=== PATIENT | male | born 1980 | race Two or more races ===

== ENCOUNTER 2020-01-19 15:50 | Emergency (ER) | payer SELFPAY ==
[~2020-01-19] VITALS: Ht 165.1 cm; Wt 110.4 kg
[2020-01-19 17:52] VITALS: BP 171/106
[2020-01-19] MEDS ORDERED: LORazepam 1MG TABLET ONE (17:54)
[2020-01-19] MEDS ORDERED: LORazepam 1MG TABLET PO ONE (18:00)
== END 2020-01-19 18:09 | disposition home or self-care (01) ==
LOC: ED 16:37
DX: R07.89 Other chest pain (principal); R42 Dizziness and giddiness; I10 Essential (primary) hypertension; F41.1 Generalized anxiety disorder
CPT/HCPCS: 71045; 93005; 99283

== ENCOUNTER 2020-08-19 08:47 | Emergency (ER) | payer SELFPAY ==
[~2020-08-19] VITALS: Ht 165.1 cm; Wt 110.0 kg
[2020-08-19 08:49] VITALS: BP 174/99
== END 2020-08-19 09:56 | disposition home or self-care (01) ==
LOC: ED 09:50
DX: U07.1 COVID-19 (principal); I10 Essential (primary) hypertension; R09.81 Nasal congestion; Z76.0 Encounter for issue of repeat prescription
CPT/HCPCS: 36415; 87635; 99283

== ENCOUNTER 2020-11-20 10:49 | Emergency (ER) | payer SELFPAY ==
[~2020-11-20] VITALS: Ht 167.6 cm; Wt 110.4 kg
[2020-11-20] MEDS ORDERED: HYDROCHLOROTHIAZIDE 12.5 MG CAPSULE PO ONE (11:30)
[2020-11-20] MEDS ORDERED: LISINOPRIL 20 MG TABLET PO ONE (11:30)
[2020-11-20] MEDS ORDERED: LISINOPRIL 20 MG TABLET ONE (11:35)
[2020-11-20 12:04] LABS: BASOPHILS % (AUTO) 1 % (0-1); EOSINOPHILS % (AUTO) 2 % (1-7); LYMPHOCYTES % (AUTO) 31 % (22-44); MEAN CORPUSCULAR HEMOGLOBIN 30.4 pg (27.5-34.5); MEAN CORPUSCULAR HGB CONC 33.8 g/dL (33.2-36.2); MEAN PLATELET VOLUME 8.5 fL (7.4-10.4); MONOCYTES % (AUTO) 7 % (2-9); NEUTROPHILS % (AUTO) 60 % (42-75); PLATELET COUNT 221 x10^3/uL (130-400); RED CELL DISTRIBUTION WIDTH 13.5 % (9.4-14.8)
[2020-11-20 12:05] LABS: MD NO
[2020-11-20 12:15] LABS: ALBUMIN 3.6 g/dL (3.4-5.0); ANION GAP 6 mmol/L (5-15); CALCIUM 8.7 mg/dL (8.5-10.1); CHLORIDE 111 mmol/L (98-107); CREATININE 0.81 mg/dL (0.7-1.3)
[2020-11-20 12:18] LABS: TROPONIN I < 0.015 ng/mL (0.000-0.045)
[2020-11-20 12:20] VITALS: BP 158/108
== END 2020-11-20 13:07 | disposition home or self-care (01) ==
LOC: ED 11:23
DX: R07.89 Other chest pain (principal); Z76.0 Encounter for issue of repeat prescription; I10 Essential (primary) hypertension; R51.9 Headache, unspecified
CPT/HCPCS: 36415; 71046; 80048; 82040; 84484; 85025; 93005; 99285